=== PATIENT | male | born 1940 ===

== ENCOUNTER 2019-01-18 08:14 | Outpatient (CLI) | payer OTHER ==
[~2019-01-18] VITALS: Ht 172.7 cm; Wt 89.8 kg
[2019-01-18] MEDS ORDERED: FLONASE16 GM NASAL (10:13)
== END 2019-01-18 08:35 | disposition home or self-care (01) ==
LOC: OFIC 805 08:14
DX: J31.0 Chronic rhinitis (principal); R22.1 Localized swelling, mass and lump, neck; D11.0 Benign neoplasm of parotid gland; C07 Malignant neoplasm of parotid gland; J34.2 Deviated nasal septum; I10 Essential (primary) hypertension

== ENCOUNTER 2019-01-24 09:35 | Outpatient (CLI) | payer OTHER ==
[~2019-01-24] VITALS: Ht 152.4 cm; Wt 89.8 kg
[~2019-01-24 09:35] MED LIST: FLONASE16 GM NASAL
== END 2019-01-24 09:45 | disposition home or self-care (01) ==
LOC: OFIC 805 09:35
DX: D11.0 Benign neoplasm of parotid gland (principal); C07 Malignant neoplasm of parotid gland; Z57.31 Occupational exposure to environmental tobacco smoke; J31.0 Chronic rhinitis